=== PATIENT | male | born 2000 | race Caucasian/White ===

== ENCOUNTER 2023-11-08 19:05 | Emergency (ER) | payer MEDICAID, SELFPAY ==
[2023-11-08 19:12] VITALS: BP 161/90; PULSE 95; RESP 20; TEMP 37.3; O2SAT 98; BMI 38.5
--- NOTE | 2023-11-08 19:32 | XR_ITS ---
Patient: MADHAV BARKSDALE Facility:?[facility] Patient ID:?[id number] Site Patient ID:?[id number] Site :?1998 Study:?XRay-Chest 2 view-11/08/2023 8:17:08 PM Ordering Physician:Kathie Wise Final Report: INDICATION: Chest pain. TECHNIQUE: Chest 2 view. COMPARISON: None. FINDINGS: No focal consolidation, pleural effusion, or pneumothorax. Normal heart size and pulmonary vascularity. The bones are unremarkable. IMPRESSION: No acute cardiopulmonary findings. Dictated by Molly Kinsey MD @ 11/08/2023 8:29:15 PM Signed by:?Molly Kinsey MD @11/08/2023 8:29:15 PM (Electronic Signature)
--- NOTE | 2023-11-08 19:35 | ED_ITS ---
HPI - General Adult General Chief complaint: Chest Pain Stated complaint: Chest pain, short of breath Time Seen by Provider: 11/08/23 19:15 History of Present Illness HPI narrative: [age] year white male who works at [employer] he is [employer]. He is a cook. He got to work today and developed some left-sided chest discomfort that was fairly pinpoint that radiated through to his back and his periscapular area on the left. It is worse when he takes a deep breath. He has not had any bleeding or clotting problems. No history of cardiac issues. He does have an elevated BMI he has a very large size man, he had denies trauma or injury he states that it felt like ?I got punched in left side of my chest. He is not really short of breath. He is not diaphoretic from the issue no throat pain or neck pain. No arm pain. He took some aspirin at home and was concerned and cam e to the ER. He also reports that he may have had a little shortness of breath with anxiety that happened after the onset of this symptom., he also had some trouble hot concentrating on his work at the [employer]. Related Data Home Medications Medication Instructions Recorded Confirmed No Known Home Medications 11/08/23 11/08/23 Allergies Allergy/AdvReac Type Severity Reaction Status Date / Time No Known Drug Allergies Allergy Verified 11/08/23 19:12 Review of Systems Status of ROS: Reports: 6 or more systems reviewed and unremarkable except as noted in History and below [facility] Social History Non-prescribed substance use: denies use Exam Narrative: Exam Narrative: Patient has been healthy, he is on no medications. Vital signs show temperature 99.2? Pulse 95 and regular respiratory rate 20 nonlabored O2 sat 90% on room air blood pressure 161/90 HEENT is unremarkable patient is alert orient x3, noncyanotic Neck is supple Chest clear Mild discomfort is periscapular region with a deep breath pleuritic type on the left. He has no anterior palpable tenderness on the left. His lungs are clear Heart rhythm regular heart murmur Abdomen benign nontender Extremities are no edema neurologic nonfocal Good peripheral perfusion noted upper lower extremities. Const: Vital Signs, click to edit/add: Vital Signs - 24 hr 11/08/23 19:12 Temperature 99.2 F Pulse Rate [Left P ulse Oximeter] 95 Respiratory Rate 20 Blood Pressure [Le ft Upper Arm] 161/90 H Pulse Oximetry 98 Oxygen Delivery Me thod Room Air Course Vital Signs Vital signs: Initial Vital Signs Temperature 99.2 F 11/08/23 19:12 Temperature Source Temporal Artery Scan 11/08/23 19:12 Pulse Rate 95 11/08/23 19:12 Pulse Rhythm Regular 11/08/23 19:12 Respiratory Rate 20 11/08/23 19:12 Blood Pressure 161/90 H 11/08/23 19:12 Blood Pressure Mean 113 H 11/08/23 19:12 Pulse Oximetry 98 11/08/23 19:12 Oxygen Delivery Method Room Air 11/08/23 19:12 Vital Signs Temperature 99.2 F 11/08/23 19:12 Pulse Rate 95 11/08/23 19:12 Respiratory Rate 20 11/08/23 19:12 Blood Pressure 161/90 H 11/08/23 19:12 Pulse Oximetry 98 11/08/23 19:12 Oxygen Delivery Method Room Air 11/08/23 19:12 Temperature 99.2 F 11/08/23 19:12 Pulse Rate 95 11/08/23 19:12 Respiratory Rate 20 11/08/23 19:12 Blood Pressure 118/68 11/08/23 21:48 Pulse Oximetry 97 11/08/23 19:55 Oxygen Delivery Method Room Air 11/08/23 19:12 Medications Administered Medications: Discontinued Medications Generic Name Dose Route Start Last Admin Trade Name Freq PRN Reason Stop Dose Admin Aspirin 324 mg 11/08/23 19:31 11/08/23 19:56 Aspirin 81 Mg Tab.Chew PO 11/08/23 19:32 324 mg ONCE ONE Administration Sodium Chloride 500 mls @ 500 mls/hr 11/08/23 19:31 11/08/23 21:04 0.9 % Sodium Chloride 500 Ml IV 11/08/23 20:30 Infused .Q1H ONE Infusion Medical Decision Making MDM Narrative Medical decision making narrative: 23-year-old male, elevated BMI, with chest pain over several hours duration she. This is likely chest wall pain but I think given his size and his complaints I think would be tai to exclude acute coronary syndrome, PE, pneumothorax. Patient will get a chest x-ray two view, will be given aspirin 324 chewable, will get troponin, will get EKG, will put him on a shipping track supervisor and oximeter. Will give him IV fluid. Will check a D-dimer as well. Further workup pending lab results. Changes shift and Dr. Alexander will assume follow-up of these lab studies and care. Addendum 7:53 p.m. patient's EKG by my read is normal sinus rhythm with sinus ar rhythmia otherwise no acute ST T wave changes. Labs are pending as mention Lab Data Labs: Lab Results 11/08/23 Range/Units 19:50 WBC 9.71 (4.50-11.00) K/uL RBC 5.49 (4.30-5.90) m/uL Hgb 14.9 (13.5-17.5) gm/dL Hct 44.3 (37.0-53.0) % MCV 81 (80-100) fL MCH 27 (26-34) pg MCHC 34 (32-36) gm/dL RDW Coeff of Tim 12.4 (11.5-15.5) % Plt Count 260 (140-440) K/uL Neut % (Auto) 69.6 (42.0-72.0) % Lymph % (Auto) 20.3 (20-44) % [place] % (Auto) 8.5 (0.0-11.0) % Eos % (Auto) 1.1 (0.0-7.0) % Baso % (Auto) 0.3 (0.0-3.0) % Neut # (Auto) 6.75 (1.7-7.0) K/uL Lymph # (Auto) 1.97 (0.90-2.90) K/uL [place] # (Auto) 0.80 (0.00-0.90) K/UL Eos # (Auto) 0.11 (0.00-0.50) K/uL Baso # (Auto) 0.03 (0.00-0.30) K/uL Abs Immat Gran (auto) 0.02 (0.00-0.30) K/uL Imm/Tot Granulo (auto) 0.2 % D-Dimer Quant (PE/DVT) < 0.27 (0.00-0.50) ug/ml Sodium 141 (135-149) mmol/L Potassium 3.4 L (3.6-5.1) mmol/L Chloride 108 (96-114) mmol/L Carbon Dioxide 26 (20-32) mmol/L Anion Gap 7 (7-15) mEq/L BUN 22 (5-24) mg/dL Creatinine 0.8 (0.5-1.5) mg/dL Estimated Creat Clear 164.11 Estimated GFR 126 ml/min Glucose 103 (60-115) mg/dL Calcium 9.6 (8.4-10.6) mg/dL Total Bilirubin 0.7 (0.1-1.5) mg/dL Direct Bilirubin 0.1 (0.0-0.5) mg/dL AST 36 H (12-35) U/L ALT 55 H (4-50) U/L Alkaline Phosphatase 55 (40-150) U/L NT-Pro-B Natriuret Pep 26 pg/mL Total Protein 7.6 (6.0-8.3) g/dL Albumin 4.7 (3.3-5.0) g/dL SARS-CoV-2 (PCR) Negative SARS-CoV-2 (Negative) Influenza Type A (PCR) Negative PCR FLU A (Negative) Influenza Type B (PCR) Negative PCR FLU B (Negative) RSV (PCR) Negative PCR RSV (Negative) POC Troponin I 0.00 L (0.01-0.04) ng/ml Discharge Plan Discharge Clinical Impression: Atypical chest pain, Rhomboid muscle pain Patient Disposition: Home, Self-Care Condition: Improved Additional Instructions: I am unsure as to what was the source of your chest pain. You have not shown any evidence of cardiac injury here today. Your blood pressure is excellent. You mentioned that you had an elevated heart rate initially. This might have been some unspecified tachycardia contributing to your chest discomfort or may also have represented your anxiety about the situation. You do have reproducible discomfort in the musculature along your left scapula. See this handout on exercises for the upper back that you might consider doing regularly going forward. Recommendations are still to follow up for persistent and increasing chest discomfort particularly accompanied by shortness of breath or nausea or diaphoresis. Prescriptions: No Action No Known Home Medications Follow Up/Referrals: Karel Matta PA-C [Physician Ornamental Iron Worker] - Stand Alone Forms: Samanta Shoesth Info Instructions
[2023-11-08 19:55] VITALS: O2SAT 97
[2023-11-08] MEDS: 0.9 % SODIUM CHLORIDE 500 ML 500 ML IV (19:55)
[2023-11-08] MEDS: ASPIRIN 81 MG TAB.CHEW 324 MG PO (19:56)
[2023-11-08 20:02] LABS: Basophils Absolute Auto 0.03 K/uL (0.00-0.30); Basophils Percent Auto 0.3 % (0.0-3.0); Eosinophils Absolute Auto 0.11 K/uL (0.00-0.50); Eosinophils Percent Auto 1.1 % (0.0-7.0); Hematocrit 44.3 % (37.0-53.0); Hemoglobin* 14.9 gm/dL (13.5-17.5); Immature Granulocytes Abs Auto 0.02 K/uL (0.00-0.30); Immature Granulocytes Pct Auto 0.2 %; Lymphocytes Absolute Auto 1.97 K/uL (0.90-2.90); Lymphocytes Percent Auto 20.3 % (20-44); Mean Corpuscular HGB Conc 34 gm/dL (32-36); Mean Corpuscular Hemoglobin 27 pg (26-34); Mean Corpuscular Volume 81 fL (80-100); Monocytes Percent Auto 8.5 % (0.0-11.0); Neutrophils Absolute Auto 6.75 K/uL (1.7-7.0); Neutrophils Percent Auto 69.6 % (42.0-72.0); Platelet Count* 260 K/uL (140-440); RDW Coefficient of Variation % 12.4 % (11.5-15.5); Red Blood Count 5.49 m/uL (4.30-5.90); White Blood Count* 9.71 K/uL (4.50-11.00)
[2023-11-08 20:04] LABS: Slide Review Reflex No
[2023-11-08 20:15] LABS: Chloride* 108 mmol/L (96-114); Potassium* 3.4 mmol/L (3.6-5.1); Sodium* 141 mmol/L (135-149)
[2023-11-08 20:16] LABS: Albumin* 4.7 g/dL (3.3-5.0)
[2023-11-08 20:17] LABS: Creatinine* 0.8 mg/dL (0.5-1.5); Est. Creatinine Clearance* 164.11; Estimated Glomerular Filt Rate 126 ml/min
[2023-11-08 20:18] LABS: Anion Gap 7 mEq/L (7-15); Blood Urea Nitrogen* 22 mg/dL (5-24); Calcium* 9.6 mg/dL (8.4-10.6); Carbon Dioxide* 26 mmol/L (20-32); Glucose* 103 mg/dL (60-115)
[2023-11-08 20:19] LABS: Alanine Aminotransferase* 55 U/L (4-50); Alkaline Phosphatase* 55 U/L (40-150); Aspartate Amino Transferase* 36 U/L (12-35); Bilirubin Direct* 0.1 mg/dL (0.0-0.5); Bilirubin Total* 0.7 mg/dL (0.1-1.5); Total Protein* 7.6 g/dL (6.0-8.3)
[2023-11-08 20:29] LABS: NT Pro B Type NatriureticPept* 26 pg/mL
[2023-11-08 20:38] LABS: PCR FLU A Negative PCR FLU A (Negative); PCR FLU B Negative PCR FLU B (Negative); PCR RSV Negative PCR RSV (Negative); SARS PCR* Negative SARS-CoV-2 (Negative)
[2023-11-08 20:55] LABS: D Dimer Quantitative* < 0.27 ug/ml (0.00-0.50)
[2023-11-08 21:48] VITALS: BP 118/68
== END 2023-11-08 21:48 | disposition home or self-care (01) ==
PROVIDERS: Emergency Provider Family Medicine
DX: R07.89 Other chest pain (principal); M79.18 Myalgia, other site
CPT/HCPCS: 36415; 71046; 80048; 80076; 83880; 84484; 85025; 85379; 87631; 94761; 96360; 99284; A9270; J7030

== ENCOUNTER 2024-08-26 14:41 | Emergency (ER) | payer OTHER, SELFPAY ==
--- OUTSIDE RECORDS SUMMARY | 2024-08-26 14:43 | XMS_ITS | Clinical Summary ---
Author Organization [facility] Address [address] [place] [id number] Care Team Providers Care Playroom Attendant Name Role Phone [facility], [facility] Primary Care Provider Allergies No known active allergies Medications albuterol (PROAIR HFA/PROVENTIL HFA/VENTOLIN HFA) 108 (90 Base) MCG/ACT inhaler Inhale 2 puffs into the lungs every 6 hours as needed for shortness of breath / dyspnea or wheezing 8.5 g Active Social History Tobacco Use Types Packs/Day Years Used Date Smoking Tobacco: Every Day Smokeless Tobacco: Never Comments:Vaping Alcohol Use Standard Drinks/Week Comments Yes 0 (1 standard drink = 0.6 oz pur e alcohol) Adolescent Education Answer Date Record ed Getting School Help Needed Not on file 03/24 Sex and Gender Information Value Date Recorded Sex Assigned at Not on file Legal Sex Male 3:33 AM CDT Gender Identity Not on file Sexual Orientation Not on file Last Filed Vital Signs Vital Sign Reading Time Taken Comments Blood Pressure 131/81 05/31/2021 12:00 AM BOG CUTTER Pulse 84 05/31/2021 12:00 AM BOG CUTTER Temperature 37.2 C (98.9 F) 05/30/2021 9:39 PM BOG CUTTER Respiratory Rate 19 05/31/2021 12:15 AM BOG CUTTER Oxygen Saturation 96% 05/31/2021 12:15 AM BOG CUTTER Inhaled Oxygen Concentration - - Weight 117.9 kg (260 lb) 10/31/2018 3:38 AM CDT Height - - Body Mass Index - - Plan of Treatment Not on file Insurance [facility] Care Teams Playroom Attendant Relationship Specialty Start Date End Date [address] [address] PCP - General 05/30/21
--- OUTSIDE RECORDS SUMMARY | 2024-08-26 14:43 | XMS_ITS | Encounter Summary ---
Author Organization [facility] Address [address] [place] [address] Care Team Providers Care Machine Shop Worker Name Role Phone [employer] [facility] Primary Care Provider Encounter Details Date Type Department Care Team (Late st Contact Info) Description 05/31/2021 Documentation Only INTERFACED REPORT Unknown, Provider Social History Tobacco Use Types Packs/Day Years Used Date Smoking Tobacco: Every Day Smokeless Tobacco: Never Comments:Vaping Alcohol Use Standard Drinks/Week Comments Yes 0 (1 standard drink = 0.6 oz pur e alcohol) Sex and Gender Information Value Date Recorded Sex Assigned at Not on file Legal Sex Male 3:33 AM CDT Gender Identity Not on file Sexual Orientation Not on file COVID-19 Exposure Response Date Recorded In the last month, have you been in contact with someone who was confirmed or suspected to have Coronavirus / COVID-19? No / Unsure 05/30/2021 9:32 PM CONSTRUCTION SUPERVISOR documented as of this encounter Plan of Treatment Not on file documented as of this encounter Visit Diagnoses Not on filedocumented in this encounter Additional Health Concerns Infection Onset Date Last Indicated Resolved Time Rule Out COVID-19 05/30/2021 05/30/2021 05/31/2021 12:03 AM CONSTRUCTION SUPERVISOR documented as of this encounter Care Teams Machine Shop Worker Relationship Specialty Start Date End Date [facility] [address] [place] [address] PCP - General 05/30/21 documented as of this encounter
[2024-08-26 14:54] VITALS: BP 141/84; PULSE 96; RESP 22; TEMP 36.6; O2SAT 97; BMI 37.1
--- NOTE | 2024-08-26 15:16 | ED_ITS ---
History of Present Illness General Time Seen by Provider: 15:16 Date Seen: 08/26/24 Chief Complaint: Epistaxis/Nosebleed Stated Complaint: Nosebleed, dizziness Time Seen by Provider: 08/26/24 15:16 Source: patient Mode of arrival: ambulatory Limitations: no limitations History of Present Illness HPI Narrative: Patient is a very pleasant 24-year-old male with history of frequent nosebleeds from his left nostril since he was a child who comes to the emergency room with 3 separate incidences of bleeding today. Patient notes recent cold congestion but no recent trauma. He notes that the bleeding is usually fairly significant. At this time he feels somewhat tired but otherwise has no complaints. He presents with a paper town this left nostril. He has seen ENT in the past. He has had his nose cauterized in the past as well. He has no known bleeding disorder or low platelets. Related Data Home Medications ?Medication ?Instructions ?Recorded ?Confirmed No Known Home Medications 11/08/23 11/08/23 Allergies Allergy/AdvReac Type Severity Reaction Status Date / Time No Known Drug Allergies Allergy Verified 11/08/23 19:12 Review of Systems Status of ROS: Reports: 10 or more systems reviewed and unremarkable except as noted in History and below Const: Denies: fever or chills Eyes: Denies: change in vision ENMT: Reports: nasal discharge; Denies: throat pain, neck pain or throat swelling Cardio: Denies: chest pain or shortness of breath with exertion Resp: Denies: shortness of breath Musculo: Denies: neck pain Neuro: Denies: headache Allergy/Immuno: Denies: throat swelling PFSH PFSH Social History Non-prescribed substance use: denies use Exam Narrative: Exam Narrative: Patient is alert and oriented. He is nontoxic in appearance. He presents with a small amount of paper towel in his left nostril. Heart with regular rate and rhythm and lungs are clear. Gently I do removed paper towel in there is some mucous with blood on the end of it but there is no active bleeding. I am able to visualize hyperemic nasal mucosa on the left. There is also an area of superficial excoriation in the shape of [place]. It is measuring approximately 4 x 3 mm. With patient's permission I do use silver nitrate cautery to cauterize the posterior and super B inferior aspect of this shape. Patient has good hemostasis. Const: Vital Signs, click to edit/add: Vital Signs - 24 hr 08/26/24 14:54 Temperature 97.9 F Pulse Rate [Pulse Oximeter] 96 Respiratory Rate 22 Blood Pressure [Ri ght Upper Arm] 141/84 H Pulse Oximetry 97 Oxygen Delivery Me thod Room Air Documenting provider has reviewed patient's vital signs: yes Course Course ED Course: Patient is noted to have recurrent epistaxis. I would like him to follow-up with our ENT doctor Palak for further consultation. Will also obtain CBC and INR today. Reevaluation(s) Reevaluation #1: A recheck shows continued hemostasis. Vital Signs Vital signs: Initial Vital Signs Temperature 97.9 F 08/26/24 14:54 Temperature Source Temporal Artery Scan 08/26/24 14:54 Pulse Rate 96 08/26/24 14:54 Respiratory Rate 22 08/26/24 14:54 Blood Pressure 141/84 H 08/26/24 14:54 Blood Pressure Mean 103 08/26/24 14:54 Pulse Oximetry 97 08/26/24 14:54 Oxygen Delivery Method Room Air 08/26/24 14:54 Vital Signs Temperature 97.9 F 08/26/24 14:54 Pulse Rate 96 08/26/24 14:54 Respiratory Rate 22 08/26/24 14:54 Blood Pressure 141/84 H 08/26/24 14:54 Pulse Oximetry 97 08/26/24 14:54 Oxygen Delivery Method Room Air 08/26/24 14:54 Temperature 97.9 F 08/26/24 14:54 Pulse Rate 96 08/26/24 14:54 Respiratory Rate 22 08/26/24 14:54 Blood Pressure 141/84 H 08/26/24 14:54 Pulse Oximetry 97 08/26/24 14:54 Oxygen Delivery Method Room Air 08/26/24 14:54 MDM - Epistaxis MDM Narrative Medical decision making narrative: 1. Epistaxis -no significant bleeding upon presentation. I was able to identify a small area of oozing on the septal mucosal left nostril. This was cauterized and was successful. Ask that patient limit nose blowing. Recommend sleeping with the bed elevated at 30? and use bacitracin or Vaseline on the inside of his nares before going to bed at night. We have made a follow-up appointment for him tomorrow at [address] Cid at the [facility]. He is to return to the emergency room as needed. A check of hemoglobin and INR was normal today. 2. Disposition-home at this time. Return for worsening symptoms. Medical Records Attestation: I reviewed the patient's medical records. Lab Data Attestation: I reviewed the patient's lab results. Labs: Lab Results 08/26/24 Range/Units 15:39 WBC 6.73 (4.50-11.00) K/uL RBC 5.49 (4.30-5.90) m/uL Hgb 15.0 (13.5-17.5) gm/dL Hct 45.4 (37.0-53.0) % MCV 83 (80-100) fL MCH 27 (26-34) pg MCHC 33 (32-36) gm/dL RDW Coeff of Tim 12.8 (11.5-15.5) % Plt Count 250 (140-440) K/uL Neut % (Auto) 60.3 (42.0-72.0) % Lymph % (Auto) 26.2 (20-44) % [place] % (Auto) 10.3 (0.0-11.0) % Eos % (Auto) 1.9 (0.0-7.0) % Baso % (Auto) 0.4 (0.0-3.0) % Neut # (Auto) 4.06 (1.7-7.0) K/uL Lymph # (Auto) 1.76 (0.90-2.90) K/uL [place] # (Auto) 0.70 (0.00-0.90) K/UL Eos # (Auto) 0.13 (0.00-0.50) K/uL Baso # (Auto) 0.03 (0.00-0.30) K/uL Abs Immat Gran (auto) 0.06 (0.00-0.30) K/uL Imm/Tot Granulo (auto) 0.9 % INR 0.96 (0.91-1.10) Discharge Plan Discharge Clinical Impression: Epistaxis Patient Disposition: Home, Self-Care Condition: Improved Additional Instructions: Follow-up appointment tomorrow with our ENT doctor Palak at 1300 hours at the [facility]. Sleep with head of bed elevated 30?. Suggest use of Vaseline or bacitracin on the inside of both nostrils at bedtime. Return to the emergency room as needed. Your hemoglobin and INR which is a sign of ability to clot are both normal Prescriptions: No Action No Known Home Medications Follow Up/Referrals: Provider,Not a Local [Primary Care Provider] - Stand Alone Forms: [employer] Info Instructions
--- OUTSIDE RECORDS SUMMARY | 2024-08-26 15:41 | XMS_ITS | Encounter Summary ---
Author Organization [facility] Address [address] [place] [address] Care Team Providers Care Composing Room Machinist Apprentice Name Role Phone [facility] Primary Care Provider Encounter Details Date Type [...] COVID-19? No / Unsure 05/30/2021 9:32 PM CONTROL TOWER RADIO OPERATOR documented as of this encounter Plan of Treatment Not on file documented as of this encounter Visit Diagnoses Not on filedocumented in this encounter Additional Health Concerns Infection Onset Date Last Indicated Resolved Time Rule Out COVID-19 05/30/2021 05/30/2021 05/31/2021 12:03 AM CONTROL TOWER RADIO OPERATOR documented as of this encounter Care Teams Composing Room Machinist Apprentice Relationship Specialty Start Date End Date [facility] [address] [place] [address] PCP - General 05/30/21 documented as of this encounter
--- OUTSIDE RECORDS SUMMARY | 2024-08-26 15:41 | XMS_ITS | Clinical Summary ---
Author Organization [facility] Address [address] [place] [id number] Care Team Providers Care Lavatory Attendant Name Role Phone Gabby Gonsalez DO Unavailable + [phone] Pcp, No Primary Care Provider Unavailabl e Allergies No known active allergies Medications albuterol HFA (PRO-AIR; VENTOLIN; PROVENTIL) 90 mcg/actuation inhalerIndication s:Mild intermittent asthma without complication Inhale 2 Puffs by mouth every 4 hours if needed for Shortness of Breath 1st choice. 3 Each 11 1 Active albuterol (PROVENTIL) 0.083 % neb solutionIndicatio ns:Viral URI with cough,Mild intermittent asthma with exacerbation Inhale 3 mL (2.5 mg) via a nebulizer every 4 hours if needed for Shortness Of Breath, Wheezing or Cough. 300 mL 3 Active sertraline (ZOLOFT) 50 mg tabletIndications :Anxiety TAKE 1 TABLET BY MOUTH IN THE MORNING 90 Tablet 3 Active fexofenadine HCl (MISA HIVES ORAL) Take by mouth. Activ e Magnesium 200 mg tab Take 200 mg by mouth once daily. Active hydrOXYzine HCL (ATARAX) 50 mg tabletIndications :Pityriasis rosea Take 0.5-1 Tablets (25-50 mg) by mouth every 8 hours if needed for Itching. 30 Tablet 4 Active triamcinolone 0.1 % ointmentIndicatio ns:Pityriasis rosea Apply topically to affected area(s) three times daily. 453.6 g 1 4 Active Active Problems Problem Noted Date Diagnosed Date Mild intermittent asthma without complication CHRIS (generalized anxiety disorder) 06/17/2020 Immunizations Name Administration Dates Next Due DTaP 11/03/2003, 0,1998,08/27,1998 HPV 9 (Gardasil 9) 06/10/2019 Hepatitis A (Peds) 05/09/2008,02/16/2007 Hepatitis B, Unspecified 11/26/2001,1998,1 08/26/1997 Hib Conjugate, Unspecified 04/03/2000,,1998,06/25 Inactivated Polio Vaccine 11/03/2003,,1998,06/25 Influenza A (H1N1), Inactivated 07/02/2009 Influenza Virus, Unspecified 03/29/2013,07/02/20 09 Influenza, IIV3 (Age >=3 years) 05/09/2008,08/21,06/29/2005 Influenza, IIV4 06/10/2019 MENINGOCOCCAL VACCINE 2 VIAL [id number] (MENVEO) 02/18/2011 MMR 11/03/2003,07/23/1999 Tdap 02/18/2011 Varicella Vaccine 02/16/2007,04/03/2000 Family History Medical History Relation Name Comments Autism Brother Diabetes Father Hypertension Father ADD / ADHD Mother Addiction problem No Family History Cancer-colon No Family History Cancer-prostate No Family History Heart attack No Family History Relation Name Status Comments Brother Father Alive Mother Alive Social History Tobacco Use Types Packs/Day Years Used Date Smoking Tobacco: Former Cigarettes 0.5 1 0 08/31/2017 - 08/31/2018 Smokeless Tobacco: Never Comments:patient uses E cigs former Alcohol Use Standard Drinks/Week Comments Yes 0 (1 standard drink = 0.6 oz pure alcohol) occassional- when out with friends. PHQ-2 Answer Date Recorded PHQ-2 TOTAL SCORE 4 06/17/2020 Social Connections Answer Date Recorded Do you often feel lonely or isolated from those around you? 0 07/21/2023 Financial Resource Strain Answer Date R ecorded Difficulty of Paying Living Expenses 3 07/21/2023 Difficulty of Paying Living Expenses Not on file 07/21/2023 Food Insecurity Answer Date Recorded Do you worry your food will run out before you are able to buy more? 1 07/21/2023 Transportation Needs Answer Date Record ed Does lack of transportation keep you from medica l appointments? 1 07/21/2023 Does lack of transportation keep you from work, meetings or getting things that you need? 1 07/21/2023 Housing Stability Answer Date Recorded What is your housing situation today? 1 07/21/2023 Utilities Answer Date Recorded Do you have trouble paying f or utilities (for example, heat, electricity, water, phone)? 1 07/21/2023 Sex and Gender Information Value Date Recorded Sex Assigned at Not on file Legal Sex Male 7:40 AM CDT Gender Identity Not on file Sexual Orientation Not on file Occupation Industry Job Start Date Job End Date Not on file Not on file Not on file Not on file [employer] Not on file Not on file Not on file Not on file Not on file Not on file Not on file Obstetrics History Last Filed Vital Signs Vital Sign Reading Time Taken Comments Blood Pressure 124/62 07/25/2023 11:16 AM TRANSCRIBING MACHINE OPERATOR Pulse 76 07/25/2023 11:16 AM TRANSCRIBING MACHINE OPERATOR Temperature 36.3 C (97.3 F) 07/21/2023 1:54 PM TRANSCRIBING MACHINE OPERATOR Respiratory Rate 16 07/21/2023 1:54 PM TRANSCRIBING MACHINE OPERATOR Oxygen Saturation 99% 07/25/2023 11:16 AM TRANSCRIBING MACHINE OPERATOR Inhaled Oxygen Concentration - - Weight 139 kg (306 lb 8 oz) 07/25/2023 11:16 AM TRANSCRIBING MACHINE OPERATOR Height 182 cm (5' 11.65) 07/25/2023 11:16 AM CS T Body Mass Index 41.97 07/25/2023 11:16 AM TRANSCRIBING MACHINE OPERATOR Plan of Treatment Health Maintenance Due Date Last Done Comments HIV for age 15-65 2013 Hepatitis C screening for age 18-79 2016 HPV series for age 9-26 (2 - Male 3-dose series) 07/08/2019 06/10/2019 Tetanus booster 02/18/2021 02/18/2011 Depression screening for age 12+ 06/18/2021 06/18/2020, 06/17/2020, 06/09/2020, Additional history exists COVID-19 vaccine series ( season) 2024 Influenza for age 9-49 03/03/2024 9, 03/29/2013, 07/02/2009, Additional history exists BMI (ht and wt on same day) for age 18+ 07/25/2024 07/25/2023, 10/25/2022, 03/17/2022, Additional history exists Tdap Completed 02/18/2011 Pneumococcal series for age 6-49 Aged Out No longer eligible based on patient's age to complete this topic Insurance [facility] Care Teams Lavatory Attendant Relationship Specialty Start Date End Date Pcp, No . PCP - General 07/11/24 Gabby Gonsalez DO [address] [facility] [place] [address] Consulting Physician Psychiatry 06/17/20
--- OUTSIDE RECORDS SUMMARY | 2024-08-26 15:41 | XMS_ITS | Clinical Summary ---
Author Organization [facility] Address [address] [place] [id number] Care Team Providers Care Monkey Breeder Name Role Phone Roro, [facility] Primary Care Provider Allergies No known active [...] Comments Blood Pressure 131/81 05/31/2021 12:00 AM [facility] Pulse 84 05/31/2021 12:00 AM [employer] [facility] Temperature 37.2 C (98.9 F) 05/30/2021 9:39 PM [employer] [facility] Respiratory Rate 19 05/31/2021 12:15 AM [employer] [facility] Oxygen Saturation 96% 05/31/2021 12:15 AM [employer] [facility] Inhaled Oxygen Concentration - - Weight 117.9 kg (260 lb) 10/31/2018 3:38 AM CDT Height - - Body Mass Index - - Plan of Treatment Not on file Insurance [facility] Care Teams Monkey Breeder Relationship Specialty Start Date End Date [address] [address] PCP - General 05/30/21
[2024-08-26 15:47] LABS: Basophils Absolute Auto 0.03 K/uL (0.00-0.30); Basophils Percent Auto 0.4 % (0.0-3.0); Eosinophils Absolute Auto 0.13 K/uL (0.00-0.50); Eosinophils Percent Auto 1.9 % (0.0-7.0); Hematocrit 45.4 % (37.0-53.0); Immature Granulocytes Abs Auto 0.06 K/uL (0.00-0.30); Immature Granulocytes Pct Auto 0.9 %; Lymphocytes Absolute Auto 1.76 K/uL (0.90-2.90); Lymphocytes Percent Auto 26.2 % (20-44); Mean Corpuscular HGB Conc 33 gm/dL (32-36); Mean Corpuscular Hemoglobin 27 pg (26-34); Mean Corpuscular Volume 83 fL (80-100); Monocytes Percent Auto 10.3 % (0.0-11.0); Neutrophils Absolute Auto 4.06 K/uL (1.7-7.0); Neutrophils Percent Auto 60.3 % (42.0-72.0); Platelet Count* 250 K/uL (140-440); RDW Coefficient of Variation % 12.8 % (11.5-15.5); Red Blood Count 5.49 m/uL (4.30-5.90); White Blood Count* 6.73 K/uL (4.50-11.00)
[2024-08-26 15:59] LABS: Slide Review Reflex No
[2024-08-26 16:02] LABS: INR 0.96 (0.91-1.10); Prothrombin Time 13.6 Seconds
== END 2024-08-26 16:16 | disposition home or self-care (01) ==
PROVIDERS: Emergency Provider Family Medicine
DX: R04.0 Epistaxis (principal)
CPT/HCPCS: 30901; 36415; 85025; 85610; 99283; 99284

== ENCOUNTER 2025-04-09 20:41 | Emergency (ER) | payer OTHER, SELFPAY ==
[2025-04-09 20:49] VITALS: BP 130/73; PULSE 88; RESP 16; TEMP 36.3; O2SAT 97; BMI 39.8
--- NOTE | 2025-04-09 21:11 | CRLHL7_ITS ---
For Patients: As a result of the Century Cures Act, medical imaging exams and procedure reports are released immediately into your electronic medical record. You may view this report before your referring provider. If you have questions, please contact your health care provider. INDICATION: Shortness of breath. TECHNIQUE: Chest 2 view. COMPARISON: Chest radiograph 11/08/2023. FINDINGS: Cardiovascular: Heart size and pulmonary vasculature are within normal limits. Lungs and pleural spaces: The lungs are clear. No sign of pleural effusion. No pneumothorax identified. Bones and soft tissues: No significant findings. IMPRESSION: No acute cardiopulmonary findings. Dictated by Molly Clement MD @ 04/09/2025 9:52:08 PM (Electronically Signed)
[2025-04-09 21:29] LABS: Hematocrit* 45.0 % (37.0-53.0); Hemoglobin* 15.3 gm/dL (13.5-17.5); Immature Granulocytes Abs Auto 0.03 K/uL (0.00-0.30); Immature Granulocytes Pct Auto 0.4 %; Lymphocytes Absolute Auto 1.85 K/uL (0.90-2.90); Mean Corpuscular HGB Conc 34 gm/dL (32-36); Mean Corpuscular Hemoglobin 27 pg (26-34); Mean Corpuscular Volume 80 fL (80-100); RDW Coefficient of Variation % 12.3 % (11.5-15.5); Red Blood Count* 5.61 m/uL (4.30-5.90); White Blood Count* 8.44 K/uL (4.50-11.00)
[2025-04-09 21:30] LABS: Slide Review Reflex No
[2025-04-09 21:39] LABS: Mono Screen* Negative (Negative)
[2025-04-09 21:42] LABS: Chloride* 103 mmol/L (96-114); Potassium* 4.1 mmol/L (3.6-5.1); Sodium* 137 mmol/L (135-149)
[2025-04-09 21:45] LABS: Anion Gap 8 mEq/L (7-15); Blood Urea Nitrogen* 14 mg/dL (5-24); Carbon Dioxide* 26 mmol/L (20-32); Creatinine* 0.8 mg/dL (0.5-1.5); Est. Creatinine Clearance* 158.14; Estimated Glomerular Filt Rate 125 ml/min
[2025-04-09 21:46] LABS: Calcium* 9.4 mg/dL (8.4-10.6); Glucose* 92 mg/dL (60-115)
--- NOTE | 2025-04-09 21:47 | ED.GENADULT ---
HPI - General Adult General Date Seen: 04/09/25 Chief complaint: Cough Stated complaint: low energy, light headed, cough, nausea Time Seen by Provider: 04/09/25 20:46 Source: patient Mode of arrival: ambulatory Limitations: no limitations History of Present Illness HPI narrative: Patient is a 24-year-old male presenting to emergency department for cough, low energy. Symptoms have been going on for the past couple weeks. States he is feeling so fatigued that he can barely go to work. Has seen his primary care provider and workup outpatient has been negative so far. Will have intermittent lightheadedness and states yesterday the lightheadedness caused him to fall over. Does not know if he passed out or not and denies hitting his head. Has been having shortness of breath and has been using his asthma inhaler without any improvement. He states he does not feel wheezy. Denies any history of blood clots, clotting disorders, recent travel, cancer, hemoptysis, hormone use. Is not aware of any sick contacts. Cough has been dry. Has never had symptoms like this before. Also is complaining about a sore throat. Has been able to eat and drink. No other concerns noted. Related Data Home Medications ?Medication ?Instructions ?Recorded ?Confirmed No Known Home Medications 11/08/23 02/27/25 Allergies Allergy/AdvReac Type Severity Reaction Status Date / Time No Known Drug Allergies Allergy Verified 04/09/25 20:57 Review of Systems Status of ROS: Reports: 10 or more systems reviewed and unremarkable except as noted in History and below [facility] Social History Non-prescribed substance use: denies use Exam Narrative: Exam Narrative: Const: Well-nourished, Well-developed, in mild distress Eyes: PERRL, no conjunctival injection, and symmetrical lids HENT: Atraumatic external nose and ears. Moist mucous membranes. Erythematous oropharynx, uvula midline, no tonsillar exudate or swelling, no swelling underneath the tongue. Neck: Symmetric, trachea midline, No thyromegaly. CVS: RRR, No murmurs or gallops. Peripheral pulses 2+ and equal in all extremities RESP: Unlabored respiratory effort. Clear to auscultation bilaterally. GI: Nontender/Nondistended, No rebound or guarding. MSK:Extremities w/o deformity, Normal Active ROM Skin: Warm, Dry. No rashes or lesions. Neuro: Normal Muscle tone, No focal neurological deficits. Psych: Awake, Alert, & Oriented x3. Appropriate mood and affect. Const: Vital Signs, click to edit/add: Vital Signs - 24 hr 04/09/25 20:49 Temperature 97.3 F L Pulse Rate [Pulse Oximeter] 88 Respiratory Rate 16 Blood Pressure [Ri ght Upper Arm] 130/73 Pulse Oximetry 97 Course Vital Signs Vital signs: Initial Vital Signs Temperature 97.3 F L 04/09/25 20:49 Temperature Source Temporal Artery Scan 04/09/25 20:49 Pulse Rate 88 04/09/25 20:49 Respiratory Rate 16 04/09/25 20:49 Blood Pressure 130/73 04/09/25 20:49 Blood Pressure Mean 92 04/09/25 20:49 Pulse Oximetry 97 04/09/25 20:49 Vital Signs Temperature 97.3 F L 04/09/25 20:49 Pulse Rate 88 04/09/25 20:49 Respiratory Rate 16 04/09/25 20:49 Blood Pressure 130/73 04/09/25 20:49 Pulse Oximetry 97 04/09/25 20:49 Temperature 97.3 F L 04/09/25 20:49 Pulse Rate 88 04/09/25 20:49 Respiratory Rate 16 04/09/25 20:49 Blood Pressure 130/73 04/09/25 20:49 Pulse Oximetry 97 04/09/25 20:49 Medical Decision Making [facility] Narrative Medical decision making narrative: Patient is a 24-year-old male presenting for fatigue and cough. Review chest x-rays look for signs of pneumonia. Also check viral swabs, strep swab, strep screen, mono test. Patient is not showing signs of peritonsillar abscess, Elroy angina, retropharyngeal abscess,Lemierre disease or any other concerning oral pharynx or deep neck space abscesses. Imaging is not necessary. BMP ordered to look for electrolyte abnormalities. Also ordered CBC. Lab work returned showing no acute concerning abnormalities. Chest x-ray reviewed by myself and the radiologist shows no acute concerning abnormalities. At this time I do not know exactly was causing his symptoms but I do not see any emergent issues. He is safe for discharge. He is agreeable to this plan. Lab Data Labs: Lab Results 04/09/25 Range/Units 21:20 WBC 8.44 (4.50-11.00) K/uL RBC 5.61 (4.30-5.90) m/uL Hgb 15.3 (13.5-17.5) gm/dL Hct 45.0 (37.0-53.0) % MCV 80 (80-100) fL MCH 27 (26-34) pg MCHC 34 (32-36) gm/dL RDW Coeff of Tim 12.3 (11.5-15.5) % Plt Count 297 (140-440) K/uL Neut % (Auto) 65.7 (42.0-72.0) % Lymph % (Auto) 21.9 (20-44) % Terry % (Auto) 10.2 (0.0-11.0) % Eos % (Auto) 1.4 (0.0-7.0) % Baso % (Auto) 0.4 (0.0-3.0) % Neut # (Auto) 5.55 (1.7-7.0) K/uL Lymph # (Auto) 1.85 (0.90-2.90) K/uL Terry # (Auto) 0.90 (0.00-0.90) K/UL Eos # (Auto) 0.12 (0.00-0.50) K/uL Baso # (Auto) 0.03 (0.00-0.30) K/uL Abs Immat Gran (auto) 0.03 (0.00-0.30) K/uL Imm/Tot Granulo (auto) 0.4 % Sodium 137 (135-149) mmol/L Potassium 4.1 (3.6-5.1) mmol/L Chloride 103 (96-114) mmol/L Carbon Dioxide 26 (20-32) mmol/L Anion Gap 8 (7-15) mEq/L BUN 14 (5-24) mg/dL Creatinine 0.8 (0.5-1.5) mg/dL Estimated Creat Clear 158.14 Estimated GFR 125 ml/min Glucose 92 (60-115) mg/dL Calcium 9.4 (8.4-10.6) mg/dL SARS-CoV-2 (PCR) Negative SARS-CoV-2 (Negative) Monoscreen Negative (Negative) Influenza Type A (PCR) Negative PCR FLU A (Negative) Influenza Type B (PCR) Negative PCR FLU B (Negative) RSV (PCR) Negative PCR RSV (Negative) Group A Strep DNA NOT DETECTED (Not Detectd) Imaging Data Chest x-ray: Radiologist's impression: No acute cardiopulmonary findings. Dictated by Molly Clement MD @ 04/09/2025 9:52:08 PM Discharge Plan Discharge Clinical Impression: Fatigue Qualifiers: Fatigue type: unspecified Qualified Code(s): R53.83 - Other fatigue Patient Disposition: Home, Self-Care Condition: Stable Instructions: Fatigue (ED) Additional Instructions: I do not see any concerning abnormalities in your lab work or imaging. I recommend following up with the primary care provider if symptoms persist. Prescriptions: No Action No Known Home Medications Follow Up/Referrals: Provider,Not a Local [Primary Care Provider, Family Practice] Stand Alone Forms: [employer] Info Instructions
[2025-04-09 22:03] LABS: Strep A DNA Probe* NOT DETECTED (Not Detectd)
[2025-04-09 22:16] LABS: PCR FLU A Negative PCR FLU A (Negative); PCR FLU B Negative PCR FLU B (Negative); PCR RSV Negative PCR RSV (Negative); SARS PCR* Negative SARS-CoV-2 (Negative)
== END 2025-04-09 22:38 | disposition home or self-care (01) ==
PROVIDERS: Emergency Provider Student in an Organized Health Care Education/Training Program
DX: R05.9 Cough, unspecified (principal); R53.83 Other fatigue
CPT/HCPCS: 36415; 71046; 80048; 85025; 86308; 87631; 87651; 99284